=== PATIENT | female | born 1950 | race Hispanic/Latino ===

== ENCOUNTER 2017-01-21 12:45 | Outpatient (CLI) | payer MEDICARE, OTHER ==
--- NOTE | 2017-01-21 13:07 | XRay Report ---
XRAY RIGHT HIP TWO VIEWS: 01/21/17 12:45:00 CLINICAL: Right hip pain which has been getting progressively worse. No comparison. FINDINGS: No fracture or dislocation.Minimal arthritis of the right hip and minimal arthritis of the left hip. A large right trochanteric enthesophyte. The pelvic bones are intact. Mild bilateral SI joint sclerosis with no erosions. IMPRESSION: Right trochanteric enthesopathy. Minimal arthritis of both hips.
== END 2017-01-21 12:46 | disposition home or self-care (01) ==
LOC: SPVIMAG 12:45
PROVIDERS: ATTEND Internal Medicine
DX: M16.0 Bilateral primary osteoarthritis of hip (principal); M77.8 Other enthesopathies, not elsewhere classified

== ENCOUNTER 2019-01-02 15:04 | Outpatient (CLI) | payer MEDICARE, OTHER ==
--- NOTE | 2019-01-02 15:57 | XRay Report ---
Right hand, 3 views INDICATION: ARTHRITIS RIGHT HAND. COMPARISON: None. IMPRESSION: No acute osseous or soft tissue abnormality. Moderate osteoarthritic changes are iden tified at the base of the right. Mild degenerative changes at the interphalangeal joint of the right thumb. The remaining joint spaces are unremarkable. Signer Name: Bran Mcdowell Jr, MD Signed: 01/02/2019 3:52 PM Workstation Name: [id number]
== END 2019-01-02 15:05 | disposition home or self-care (01) ==
LOC: SPVIMAG 15:04
PROVIDERS: ATTEND Internal Medicine
DX: M19.041 Primary osteoarthritis, right hand (principal)